=== PATIENT | female | born 1945 | race Caucasian/White ===

== ENCOUNTER 2018-09-05 13:29 | Emergency (ER) | payer OTHER ==
[~2018-09-05] VITALS: Ht 152.4 cm; Wt 63.5 kg
[2018-09-05] MEDS ORDERED: FURO20 PO (14:52)
[2018-09-05] MEDS ORDERED: Neurontin 300300 MG PO (14:53)
[2018-09-05] MEDS ORDERED: GABA300 PO (14:54)
[2018-09-05] MEDS ORDERED: LOSARTAN POTASS50 MG PO (14:55)
[2018-09-05] MEDS ORDERED: Omeprazole20 M1 PO (14:55)
[2018-09-05] MEDS ORDERED: CITA20 PO (14:55)
[2018-09-05 16:13] LABS: Source, Urine Voided
[2018-09-05 16:15] LABS: Appearance, Urine Hazy (Clear); Bilirubin, Urine Neg (Neg); Blood, Urine 1+ (Neg); Color, Urine Yellow (P-Yellow); Glucose Qualitative, Urine Neg (Neg); Ketones, Urine Neg (Neg); Leukocyte Esterase, Urine 3+ (Neg); Nitrite, Urine Pos (Neg); Protein, Urine 2+ (Neg); Specific Gravity, Urine 1.015 (1.003-1.022); Urobilinogen, Urine NORM (Normal); pH, Urine 6.5 (5.0-8.0)
[2018-09-05 16:35] LABS: White Blood Cells, Urine 25-50 /hpf (0-5)
[2018-09-05 16:36] LABS: Bacteria Many /hpf; Squamous Epithelial Cells Few /hpf (Few)
[2018-09-05 16:46] LABS: BASOPHILS ABSOLUTE AUTO 0.03 K/mm3 (0.00-0.23); BASOPHILS PERCENT AUTO 0 % (0-2); EOSINOPHILS ABSOLUTE AUTO 0.07 K/mm3 (0.00-0.68); EOSINOPHILS PERCENT AUTO 1 % (0-6); Hematocrit 36.2 % (33.0-51.0); Hemoglobin 11.7 g/dL (11.5-16.0); IMMATURE GRAN ABSOLUTE AUTO 0.06 K/mm3 (0.00-0.10); IMMATURE GRAN PERCENT AUTO 1 % (0-1); LYMPHOCYTES ABSOLUTE AUTO 1.09 K/mm3 (0.84-5.20); LYMPHOCYTES PERCENT AUTO 10 % (21-46); MONOCYTES ABSOLUTE AUTO 0.55 K/mm3 (0.16-1.47); MONOCYTES PERCENT AUTO 5 % (4-13); Mean Corpuscular HGB 31.2 pg (26.0-34.0); Mean Corpuscular HGB Conc 32.3 g/dL (31.5-36.5); Mean Corpuscular Volume 97 fL (80-100); Mean Platelet Volume 9.9 fL (9.1-12.4); NEUTROPHILS ABSOLUTE AUTO 8.88 K/mm3 (1.96-9.15); NEUTROPHILS PERCENT AUTO 83 % (41-73); Platelet Count 284 K/mm3 (150-400); RDW Coefficient Variation 12.2 % (11.7-14.2); RDW Standard Deviation 43.1 fL (35.1-46.3); Red Blood Cell Count 3.75 M/mm3 (3.80-5.20); White Blood Cell Count 10.68 K/mm3 (4.00-11.30)
[2018-09-05 17:11] LABS: Albumin, Blood 3.5 g/dL (3.4-5.0); Albumin/Globulin Ratio 1.2 (0.8-1.8); Bilirubin, Total 0.8 mg/dL (0.1-1.0); Bun/Creatinine Ratio 18.6 (12.0-20.0); Creatinine, Blood 1.02 mg/dL (0.40-1.00); Globulin, Blood 2.9 g/dL (2.2-4.0); Potassium, Blood 4.2 mmol/L (3.5-5.5); Total Protein, Blood 6.4 g/dL (6.4-8.2)
== END 2018-09-05 17:15 | disposition short-term general hospital (02) ==
LOC: ER 13:29
PROVIDERS: Emergency Medicine
DX: S32.011A Stable burst fracture of first lumbar vertebra, initial encounter for closed fracture (principal); V47.6XXA Car passenger injured in collision with fixed or stationary object in traffic accident, initial encounter; Z88.5 Allergy status to narcotic agent; Z79.899 Other long term (current) drug therapy
CPT/HCPCS: 72131; 80053; 81001; 85025; 87077; 87086; 87185; 87186; 93005; 93010; 96374; 96375; 96376; 99285-25; J2405; J3010; J7120